=== PATIENT | female | born 1965 | race Caucasian/White ===

== ENCOUNTER 2024-07-07 06:30 | Emergency (ER) | payer BC ==
[2024-07-07 06:52] VITALS: BP 136/89; PULSE 71
[2024-07-07] MEDS: predniSONE 20 MG Tab PO ONE (07:07)
[2024-07-07] MEDS: Take Home: predniSONE 20 MG, 2 Tab Pack PO ONE (07:11)
[2024-07-07] MEDS: Take Home: Acetaminophen/HYDROcodone 325-5 MG, 5 Tab Pack PO ONE (07:18)
[2024-07-07] MEDS: Morphine 2 MG/ML SYRINGE IM ONE (07:18)
== END 2024-07-07 07:33 | disposition home or self-care (01) ==
LOC: VM.ED 06:30
DX: M25.512 Pain in left shoulder (principal); M54.2 Cervicalgia
CPT/HCPCS: 96372; 99283; A9270; J2270; J7512